=== PATIENT | male | born 1960 | race African-American/Black ===

== ENCOUNTER 2019-03-23 09:58 | Inpatient (IN) | payer OTHER ==
[~2019-03-23] VITALS: Ht 188 cm; Wt 81.6 kg
[2019-03-23] MEDS ORDERED: LEVETIRACETAM 1000MG/100ML 100 ML IV ONE (10:15)
[2019-03-23 10:56] LABS: BASOPHILS % 0.4 % (0.0-2.0); EOSINOPHILS % 3.9 % (0.0-5.0); HEMATOCRIT. 45.2 % (42.0-52.0); HEMOGLOBIN. 15.3 g/dL (14.0-18.0); LYMPHOCYTES % 14.7 % (20.0-50.0); MEAN CORPUSCULAR HEMOGLOBIN 33.8 pg (28.0-32.0); MEAN CORPUSCULAR VOLUME 99.9 fL (80.0-94.0); MEAN PLATELET VOLUME 8.6 fl (7.4-10.4); PLATELET 172 x1000/uL (130-400); RED BLOOD CELL COUNT 4.52 mill/uL (4.7-6.1); RED CELL DISTRIBUTION WIDTH 13.1 % (11.6-14.6)
[2019-03-23 10:59] LABS: CHLORIDE 104 mEq/L (98-107)
[2019-03-23 11:06] LABS: ETHANOL BLOOD < 10 mg/dL
[2019-03-23 11:23] LABS: CLARITY URINE CLEAR (CLEAR); COLOR URINE YELLOW (YELLOW); KETONES URINE NEGATIVE (NEGATIVE); LEUKOCYTE ESTERASE URINE NEGATIVE (NEGATIVE); NITRITE URINE NEGATIVE (NEGATIVE); OCCULT BLOOD URINE NEGATIVE (NEGATIVE); PROTEIN URINE 2+ (NEGATIVE); SPECIFIC GRAVITY URINE 1.034 (1.005-1.030); UROBILINOGEN URINE 0.2 E.U./dL (0.2-1.0)
[2019-03-23 11:43] LABS: *AMPHETAMINES SCREEN URINE NEGATIVE (NEGATIVE); *BARBITURATES SCREEN URINE NEGATIVE (NEGATIVE); *BENZODIAZEPINES SCREEN URINE NEGATIVE (NEGATIVE); *COCAINE SCREEN URINE PRESUMTIVE POSITIVE (NEGATIVE); METHADONE URINE SCREEN NEGATIVE (NEGATIVE)
[2019-03-23 11:44] LABS: CANNABINOID URINE SCREEN NEGATIVE (NEGATIVE); OPIATES URINE SCREEN NEGATIVE (NEGATIVE); PHENCYCLIDINE URINE SCREEN NEGATIVE (NEGATIVE)
[2019-03-23] MEDS ORDERED: AMLODIPINE 5MG TABLET PO ONE (15:30)
[2019-03-23] MEDS ORDERED: LORAZEPAM 2MG/ML CPJ IV PRN (22:00)
[2019-03-23] MEDS ORDERED: IPRATROPIUM/ALBUTEROL 0.5-3(2.5)MG/3ML NEB NEB PRN (22:00)
[2019-03-23] MEDS ORDERED: CLONIDINE 0.1MG TABLET PO PRN (22:00)
[2019-03-23] MEDS ORDERED: ONDANSETRON HCL 4MG/2ML INJ IV PRN (22:00)
[2019-03-23] MEDS ORDERED: INSULIN LISPRO (MEDIUM DOSE) 100 UNITS/ML SUBCUT NR (23:30)
[2019-03-23] MEDS: ACETAMINOPHEN 325MG TABLET PO PRN (23:44)
[2019-03-24] VITALS: BP 137/89
[2019-03-24] MEDS ORDERED: DEXTROSE 50% WATER 50ML SYRINGE IV PRN (01:15)
[2019-03-24] MEDS ORDERED: PHEN100C4 PO (01:15)
[2019-03-24] MEDS ORDERED: METF-414 PO (01:15)
[2019-03-24] MEDS ORDERED: ASPI-1497 PO (01:18)
[2019-03-24] MEDS ORDERED: AMLO5TAB88 PO (01:18)
[2019-03-24] MEDS ORDERED: KEPP500 PO (01:18)
[2019-03-24] MEDS ORDERED: ENAL10TA PO (01:18)
[2019-03-24 04:00] VITALS: BP 152/88
[2019-03-24] MEDS: BLOOD SUGAR DIAGNOSTIC STRIP TEST SCH ×4 (06:20→21:04)
[2019-03-24] MEDS: SODIUM CHLORIDE 0.9% 1,000 ML IV SCH ×2 (06:20→12:27)
[2019-03-24 08:20] LABS: BASOPHILS % 0.6 % (0.0-2.0); EOSINOPHILS % 8.5 % (0.0-5.0); HEMATOCRIT. 42.3 % (42.0-52.0); HEMOGLOBIN. 14.3 g/dL (14.0-18.0); LYMPHOCYTES % 27.6 % (20.0-50.0); MEAN CORPUSCULAR HEMOGLOBIN 32.9 pg (28.0-32.0); MEAN CORPUSCULAR VOLUME 97.5 fL (80.0-94.0); MEAN PLATELET VOLUME 9.4 fl (7.4-10.4); MONOCYTES % 12.9 % (2.0-8.0); NEUTROPHILS % 50.4 % (40.0-76.0); PLATELET 177 x1000/uL (130-400); RED BLOOD CELL COUNT 4.34 mill/uL (4.7-6.1); RED CELL DISTRIBUTION WIDTH 13.3 % (11.6-14.6)
[2019-03-24 08:23] LABS: CHLORIDE 106 mEq/L (98-107)
[2019-03-24] MEDS: LEVETIRACETAM 500MG TABLET PO SCH ×2 (08:51→20:56)
[2019-03-24] MEDS: ENOXAPARIN 40MG/0.4ML SYR SUBCUT SCH (08:51)
[2019-03-24] MEDS: INSULIN LISPRO 100 UNITS/ML SUBCUT SCH ×4 (08:56→21:04)
[2019-03-24] MEDS: ACETAMINOPHEN 325MG TABLET PO PRN ×2 (09:21→18:12)
[2019-03-24] MEDS: LOSARTAN POTASSIUM 50 MG TABLET PO SCH (09:21)
[2019-03-24 12:00] VITALS: BP 146/95
[2019-03-24 16:00] VITALS: BP 140/86
[2019-03-24] MEDS ORDERED: PHENYTOIN SODIUM 1,000 MG in SODIUM CHLORIDE 0.9% 100 ML IV SCH (16:00)
[2019-03-24] MEDS: FOLIC ACID 1MG TABLET PO SCH (17:09)
[2019-03-24] MEDS: THIAMINE HCL 100MG TABLET PO SCH (17:09)
[2019-03-24] MEDS: MULTIVITAMINS,THER W-MINERALS TABLET PO SCH (17:09)
[2019-03-24 20:00] VITALS: BP 153/91
[2019-03-25] VITALS: BP_SYST 142; BP_SYST 153; BP_DIAS 86; BP_DIAS 89
[2019-03-25 04:00] VITALS: BP 170/95
[2019-03-25] MEDS: SODIUM CHLORIDE 0.9% 1,000 ML IV SCH ×3 (05:05→10:25)
[2019-03-25 06:05] VITALS: BP 159/89
[2019-03-25] MEDS: BLOOD SUGAR DIAGNOSTIC STRIP TEST SCH ×2 (06:34→11:19)
[2019-03-25] MEDS: INSULIN LISPRO 100 UNITS/ML SUBCUT SCH ×2 (06:52→11:19)
[2019-03-25 08:00] VITALS: BP 124/87
[2019-03-25] MEDS: ENOXAPARIN 40MG/0.4ML SYR SUBCUT SCH (08:46)
[2019-03-25] MEDS: MULTIVITAMINS,THER W-MINERALS TABLET PO SCH (08:46)
[2019-03-25] MEDS: LEVETIRACETAM 500MG TABLET PO SCH (08:46)
[2019-03-25] MEDS: THIAMINE HCL 100MG TABLET PO SCH (08:46)
[2019-03-25] MEDS: FOLIC ACID 1MG TABLET PO SCH (08:46)
[2019-03-25] MEDS: LOSARTAN POTASSIUM 50 MG TABLET PO SCH (08:46)
[2019-03-25 12:00] VITALS: BP 145/91
[2019-03-25 16:00] VITALS: BP 153/101
[2019-03-25] MEDS ORDERED: PHENYTOIN SODIUM EXTENDED 100MG CAPSULE PO SCH (21:00)
== END 2019-03-25 17:40 | disposition home or self-care (01) | DRG 53 ==
LOC: ER 10:13 → 6WST 15:05 → EDBEDREQ 15:26 → ENRESERV 22:45 → 6WST 03-24 00:31
PROVIDERS: ADMIT Internal Medicine; ATTEND Internal Medicine
DX: G40.909 Epilepsy, unspecified, not intractable, without status epilepticus (principal); E11.65 Type 2 diabetes mellitus with hyperglycemia; F14.10 Cocaine abuse, uncomplicated; I10 Essential (primary) hypertension; Z59.0 Homelessness; Z91.14 Patient's other noncompliance with medication regimen; Z91.19 Patient's noncompliance with other medical treatment and regimen
CPT/HCPCS: 36415; 80048; 80053; 80076; 80185; 80305; 80320; 81003; 82962; 85025; 93005; 96365; 99285; J1165; J1650; J1815; J1953; J7050; G0480

== ENCOUNTER 2019-04-24 03:16 | Emergency (ER) | payer OTHER ==
[~2019-04-24] VITALS: Ht 180.3 cm; Wt 86.0 kg
[~2019-04-24 03:16] MED LIST: AMLO5TAB88 PO; ASPI-1497 PO; ENAL10TA PO; KEPP500 PO; METF-414 PO; PHEN100C4 PO
[2019-04-24] MEDS ORDERED: ACETAMINOPHEN 325MG TABLET PO ONE (06:15)
[2019-04-24] MEDS ORDERED: ACETAMINOPHEN 500MG TABLET PO ONE (07:09)
[2019-04-24 07:35] VITALS: BP 169/98
== END 2019-04-24 07:54 | disposition home or self-care (01) ==
LOC: ER 03:16
DX: S09.90XA Unspecified injury of head, initial encounter (principal); E11.65 Type 2 diabetes mellitus with hyperglycemia; I10 Essential (primary) hypertension; Z98.890 Other specified postprocedural states; Z79.899 Other long term (current) drug therapy; X58.XXXA Exposure to other specified factors, initial encounter; Y93.89 Activity, other specified; Y92.89 Other specified places as the place of occurrence of the external cause; Y99.8 Other external cause status
CPT/HCPCS: 82962; 99284